=== PATIENT | female | born 1990 | race Caucasian/White ===

== ENCOUNTER 2017-04-04 16:19 | Emergency (ER) | payer SELFPAY ==
[~2017-04-04] VITALS: Ht 160 cm; Wt 50.9 kg
[~2017-04-04 16:19] MED LIST: DOXY100T17 PO; METR-1 PO; NO CURRENT MEDS
[2017-04-04 16:20] VITALS: BP 132/81; PULSE 93; RESP 15; TEMP 98; O2SAT 100
[2017-04-04 19:24] LABS: AUTOMATED NEUTROPHIL # 2.5 TH/MM3 (1.8-7.7); BASOPHIL % 0.5 % (0.0-2.0); EOSINOPHIL # 0.2 TH/MM3 (0-0.4); HEMATOCRIT 36.3 % (35.0-46.0); HEMOGLOBIN 12.3 GM/DL (11.6-15.3); LYMPHOCYTE # 2.1 TH/MM3 (1.0-4.8); MEAN CELL VOLUME 87.4 FL (80.0-100.0); MEAN CORPUSCULAR HEMOGLOBIN 29.6 PG (27.0-34.0); MEAN CORPUSCULAR HGB CONC 33.9 % (32.0-36.0); MEAN PLATELET VOLUME 8.5 FL (7.0-11.0); MONO % 10.1 % (0.0-8.0); MONOCYTE # 0.6 TH/MM3 (0-0.9); NEUT % 46.4 % (16.0-70.0); PLATELET COUNT 240 TH/MM3 (150-450); RED BLOOD COUNT 4.16 MIL/MM3 (4.00-5.30); RED CELL DISTRIBUTION WIDTH 13.3 % (11.6-17.2); WHITE BLOOD COUNT 5.5 TH/MM3 (4.0-11.0)
[2017-04-04 19:38] LABS: ALBUMIN 3.9 GM/DL (3.4-5.0); AST (GOT) 20 U/L (15-37); BICARBONATE 24.6 MEQ/L (21.0-32.0); BLOOD UREA NITROGEN 16 MG/DL (7-18); CALCIUM 8.7 MG/DL (8.5-10.1); CHLORIDE 106 MEQ/L (98-107); CREATININE 0.72 MG/DL (0.50-1.00); GLOMERULAR FILTRATION RATE 100 ML/MIN (>89); GLUCOSE,RANDOM 88 MG/DL (74-106); SODIUM (NA) 139 MEQ/L (136-145)
[2017-04-04 19:42] LABS: ALKALINE PHOSPHATASE 48 U/L (45-117); ALT (GPT) 17 U/L (10-53); TOTAL BILIRUBIN ADULT 0.2 MG/DL (0.2-1.0)
--- NOTE | 2017-04-04 20:17 | PD ---
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 She says it was very heavy at first and came around the time of her period, but has not gone away. She says she thought it had slowed down, but came back heavy today. She has been passing clots and had some lower abdominal cramping. She denies dizziness or lighthedness. She denies shortness of breath or palpitations. She says she was taking control on and off, but stopped when the bleeding started. [facility] Past Medical History Medical History: Denies Significant Hx Diminished Hearing: No Immunizations Current: Yes Tetanus Vaccination: Unknown Influenza Vaccination: No ?: Unknown LMP: CURRENT [id number] Past Surgical History Surgical History: No Previous Surgery Social History Alcohol Use: Yes (SOCIAL) Tobacco Use: No Substance Use: No Allergies-Medications (Allergen,Severity, Reaction): Coded Allergies: No Known Allergies (Verified Adverse Reaction, Unknown, 04/04/17) Reported Meds & Prescriptions Reported Meds & Active Scripts Active Reported [No Current Meds] Review of Systems Except as stated in HPI: all other systems reviewed are Neg General / Constitutional: No: Fever, Chills Eyes: No: Blurred Vision HENT: No: Headaches, Lightheadedness Cardiovascular: No: Chest Pain or Discomfort, Palpitations Respiratory: No: Shortness of Breath Gastrointestinal: Positive: Abdominal Pain, No: Nausea, Vomiting Genitourinary: Positive: Vaginal Bleeding Skin: No Rash, No Change in Pigmentation Neurologic: No: Weakness, Dizziness Physical Exam Narrative GENERAL: Awake and alert, in no acute distress. SKIN: Focused skin assessment warm/dry. HEAD: Atraumatic. Normocephalic. EYES: Pupils equal and round. No scleral icterus. No conjunctival pallor. ENT: Mucous membranes pink and moist. NECK: Trachea midline. No JVD. CARDIOVASCULAR: Regular rate and rhythm. No murmur appreciated. RESPIRATORY: No accessory muscle use. Clear to auscultation. Breath sounds equal bilaterally. GASTROINTESTINAL: Abdomen soft, non-tender, nondistended. : Exam performed in the presence of a nurse. Blood in the vaginal vault with clots present. No CMT, no cervical lesions. MUSCULOSKELETAL: No obvious deformities. No clubbing. No cyanosis. No edema. NEUROLOGICAL: Awake and alert. No obvious cranial nerve deficits. Motor grossly within normal limits. Normal speech. PSYCHIATRIC: Appropriate mood and affect; insight and judgment normal. Data Data Last Documented VS Vital Signs Date Time Temp Pulse Resp B/P (MAP) Pulse Ox O2 Delivery O2 Flow Rate FiO2 04/04/17 18:51 18 04/04/17 16:20 98.0 93 132/81 (98) 100 Orders Orders Urinalysis - C+S If Indicated (04/04/17 16:25) Ed Urine Pregnancytest Poc (04/04/17 16:25) Complete Blood Count With Diff (04/04/17 18:52) Comprehensive Metabolic Panel (04/04/17 18:52) Iv Access Insert/Monitor (04/04/17 18:52) Us Pelvis Comp W Transvaginal (04/04/17 ) Sodium Chlor 0.9% 1000 Ml Inj (Ns 1000 M (04/04/17 21:15) Labs Laboratory Tests Test 04/04/17 19:10 White Blood Count 5.5 TH/MM3 Red Blood Count 4.16 MIL/MM3 Hemoglobin 12.3 GM/DL Hematocrit 36.3 % Mean Corpuscular Volume 87.4 FL Mean Corpuscular Hemoglobin 29.6 PG Mean Corpuscular Hemoglobin Concent 33.9 % Red Cell Distribution Width 13.3 % Platelet Count 240 TH/MM3 Mean Platelet Volume 8.5 FL Neutrophils (%) (Auto) 46.4 % Lymphocytes (%) (Auto) 39.0 % Monocytes (%) (Auto) 10.1 % Eosinophils (%) (Auto) 4.0 % Basophils (%) (Auto) 0.5 % Neutrophils # (Auto) 2.5 TH/MM3 Lymphocytes # (Auto) 2.1 TH/MM3 Monocytes # (Auto) 0.6 TH/MM3 Eosinophils # (Auto) 0.2 TH/MM3 Basophils # (Auto) 0.0 TH/MM3 CBC Comment DIFF FINAL Differential Comment Blood Urea Nitrogen 16 MG/DL Creatinine 0.72 MG/DL Random Glucose 88 MG/DL Total Protein 8.0 GM/DL Albumin 3.9 GM/DL Calcium Level 8.7 MG/DL Alkaline Phosphatase 48 U/L Aspartate Amino Transf (AST/SGOT) 20 U/L Alanine Aminotransferase (ALT/SGPT) 17 U/L Total Bilirubin 0.2 MG/DL Sodium Level 139 MEQ/L Potassium Level 3.3 MEQ/L Chloride Level 106 MEQ/L Carbon Dioxide Level 24.6 MEQ/L Anion Gap 8 MEQ/L Estimat Glomerular Filtration Rate 100 ML/MIN MDM Medical Decision Making Medical Screen Exam Complete: Yes Emergency Medical Condition: Yes Medical Record Reviewed: Yes Differential Diagnosis dysfunctional uterine bleeding vs menorrhagia vs miscarriage vs anemia Narrative Course Patient is a 26 year female who comes in complaining of 3 weeks of vaginal bleeding. Exam shows blood in the vaginal vault with some clots. IV established, labs sent. Hgb is 12.3. US performed shows no acute abnormalities. Given IVF. Advised to start her control again and follow up with funeral service practitioner/embalmer. Advised to return to the ED as needed for any worsening symptoms. Diagnosis Primary Impression: Dysfunctional uterine bleeding Patient Instructions: Dysfunctional Uterine Bleeding (ED), General Instructions Additional Instructions: Restart your control. Follow-up with COURT SUPERVISOR. Return to the ED as needed for any worsening symptoms. Disposition: 01 DISCHARGE HOME Condition: Stable Nayla Ng MD Apr 04, 2017 20:17
--- NOTE | 2017-04-04 20:46 | RADRPT ---
EXAM DATE/TIME: 04/04/2017 19:58 [facility] COMPARISON: No previous studies available for comparison. INDICATIONS : Abnormal bleeding. MEDICAL HISTORY : . x 2. SURGICAL HISTORY : None. ENCOUNTER: Initial ACUITY: 3 weeks PAIN SCORE: 0/10 LOCATION: Bilateral pelvis MEASUREMENTS: UTERUS: 7.7 x 4.8 x 4.0 cm ENDOMETRIAL STRIPE: 3 mm RIGHT OVARY: 4.7 x 1.9 x 2.4 cm LEFT OVARY: 5.6 x 2.4 x 1.7 cm FINDINGS: UTERUS: The myometrium has homogeneous echotexture without mass. RIGHT OVARY: Ovary contains no mass or significant cystic lesion. LEFT OVARY: Ovary contains no mass or significant cystic lesion. Follicle measures 16 mm. MISCELLANEOUS: Trace free fluid. CONCLUSION: 1. Trace pelvic free fluid. 2. Otherwise unremarkable pelvic sonogram. Cody Gary MD on April 04, 2017 at 20:43 Board Certified Radiologist. This report was verified electronically.
[2017-04-04] MEDS ORDERED: SODIUM CHLOR 0.9% 1000 ML INJ 1,000 ML IV ONE (21:15)
== END 2017-04-04 22:55 | disposition home or self-care (01) ==
LOC: NEPD 16:19
DX: N93.8 Other specified abnormal uterine and vaginal bleeding (principal)
CPT/HCPCS: 76830; 76856; 80053; 84703; 85025; 99285; J7030